=== PATIENT | male | born 1955 | race Caucasian/White ===

== ENCOUNTER → 2020-01-19 | Day surgery (SDC) | payer OTHER ==
[~2020-01-19] MED LIST: Bupivacaine 0.25% 10 ML SDV ONE; Lactated Ringers 1,000 ML IV SCH; Lidocaine 1% 2 ML ONE; Lidocaine 1% 50 ML MDV ONE; Lidocaine 1%/Sod Bicarbonate in NS 8.4% 1 ML Syringe IDERM PRN; Midazolam 1 MG/ML 2 ML SDV ONE; Propofol 200 MG/20 ML SDV ONE; Sodium Chloride 0.9% 10 ML Syringe FLUSH PRN; ceFAZolin 1 GM Vial ONE
--- NOTE | 2020-01-19 10:27 | PCM.PREANE ---
Preanesthetic Assessment - Procedure Proposed Procedure: Rt CTR - Anesthesia/Transfusion/Family Hx Anesthesia History: Prior Anesthesia Without Reaction - Review of Systems General: No Symptoms Pulmonary: No Symptoms Cardiovascular: No Symptoms Gastrointestinal: No Symptoms Neurological: No Symptoms Other: Reports: None - Physical Assessment NPO Status Date: 01/18/20 NPO Status Time: 23:00 Vital Signs: Last Vital Signs Temp 98.2 F 01/19/20 10:00 Pulse 67 01/19/20 10:00 Resp 16 01/19/20 10:00 BP 152/77 H 01/19/20 10:00 Pulse Ox 96 01/19/20 10:00 ASA Class: 1 Mental Status: Alert & Oriented x3 Airway Class: Mallampati = 3 Dentition: Reports: Normal Dentition, [place](s), Missing Tooth/Teeth Thyro-Mental Finger Breadths: 3 Mouth Opening Finger Breadths: 3 ROM/Head Extension: Full Lungs: Clear to Auscultation, Normal Respiratory Effort Cardiovascular: Regular Rate, Regular Rhythm - Lab Values: Laboratory Last Values SARS Virus RNA (PCR) Negative (NEGATIVE) 01/17/20 15:06 - Acknowledgements Anesthesia Type Planned: MAC Pt an Appropriate Candidate for the Planned Anesthesia: Yes Alternatives and Risks of Anesthesia Discussed w Pt/Guardian: Yes Pt/Guardian Understands and Agrees with Anesthesia Plan: Yes PreAnesthesia Questionnaire - HOME MEDS Home Medications: Home Meds Acetaminophen/HYDROcodone [[place] 325-5 MG] 1 - 2 tab PO Q6H PRN #10 tablet 01/18 [Rx] - CURRENT (IN HOUSE) MEDS Current Meds: Current Medications Lactated Ringer's (Ringers, Lactated) 1,000 mls @ 125 mls/hr IV ASDIRECTED TRACI Stop: 01/19/20 23:00 Lidocaine/Sodium Bicarbonate (Buffered Lidocaine 1% In Ns 8.4%) 0.25 ml IDERM ONETIME PRN PRN Reason: Prior to IV Start Stop: 01/19/20 18:00 Sodium Chloride (Saline Flush) 10 ml FLUSH ASDIRECTED PRN PRN Reason: Keep Vein Open Stop: 01/19/20 18:00 Discontinued Medications Bupivacaine HCl (Sensorcaine-Mpf 0.25%) Confirm Administered Dose 20 ml .ROUTE .STK-MED ONE Stop: 01/19/20 10:03 Lidocaine HCl (Xylocaine 1%) Confirm Administered Dose 50 ml .ROUTE .[facility] ONE Stop: 01/19/20 10:03
--- NOTE | 2020-01-19 11:32 | PCM48HPAN ---
Post Anesthesia Note - EVALUATION WITHIN 48HRS OF ANESTHETIC Vital Signs in Normal Range: Yes Patient Participated in Evaluation: Yes Respiratory Function Stable: Yes Airway Patent: Yes Cardiovascular Function Stable: Yes Hydration Status Stable: Yes Pain Control Satisfactory: Yes Nausea and Vomiting Control Satisfactory: Yes Mental Status Recovered: Yes Vital Signs: Last Vital Signs Temp 97.8 F 01/19/20 11:23 Pulse 74 01/19/20 11:23 Resp 16 01/19/20 11:23 BP 126/68 01/19/20 11:23 Pulse Ox 95 01/19/20 11:23
--- NOTE | 2020-01-19 11:40 | PCM.OPNOTE ---
- General Post-Op/Procedure Note Date of Surgery/Procedure: 01/19/20 Operative Procedure(s): right carpal tunnel release Pre Op Diagnosis: right median nerve compression neuropathy Post-Op Diagnosis: Same Anesthesia Technique: Local, MAC Primary Surgeon: Jay Medrano Anesthesia Provider: Shalom Teresa Department Administrator: Hilda Kohli EBL in mLs: 5 Complications: None Condition: Good
--- NOTE | 2020-01-20 18:29 | OR ---
DATE OF OPERATION: 01/19/2020 SURGEON: Jay Medrano MD OPERATION PERFORMED: Right carpal tunnel release. PREOPERATIVE DIAGNOSIS: Right median nerve compression neuropathy. POSTOPERATIVE DIAGNOSIS: Right median nerve compression neuropathy. ANESTHESIA: Local MAC. ANESTHESIA PROVIDER: Nae Patel. JANITORIAL ASSISTANT: Hilda Kohli PA-C ESTIMATED BLOOD LOSS: Less than 5 mL. COMPLICATIONS: None. CONDITION: Stable. DESCRIPTION OF PROCEDURE: The patient was identified in the preop holding area. Proper site was marked and identified by the surgeon. The patient was taken back to the operating theater where after adequate anesthesia, the patient's right upper extremity was sterilely prepped and draped in the usual sterile fashion. OR time-out was performed. The patient did not receive antibiotics and it is not indicated for soft tissue hand procedure. At this time, the right upper extremity was exsanguinated and an [place] was used as a tourniquet on the forearm. At this time, using 1% lidocaine without epinephrine and 0.25% Marcaine without epinephrine, the palmar cutaneous branch of the median nerve was anesthetized and then the incisional site was anesthetized using Huizar cardinal line and ulnar border of the fourth digit as reference. Once this had set up, an incision was made. Blunt dissection was taken down to the palmar cutaneous fascia. Palmar cutaneous fascia was incised with a [place] blade. At this time, the transverse carpal ligament was identified. A small rent was made in the transverse carpal ligament with a [place] blade under direct visualization. Resection of the transverse carpal ligament was done distally using tenotomy scissors making sure to stop short of the palmar arch. At this time, attention was turned proximally after it was found to be adequately released. Using the tenotomy scissors keeping the tips ulnar to protect the palmar cutaneous branch of the median nerve, the superficial forearm fascia as well as the transverse carpal ligament were resected proximally. It was found to be adequate release both proximally and distally. At this time, adequate saline was irrigated through the wound. 4-0 nylon sutures were used closure of the skin. The patient was placed in a sterile soft dressing and sent to PACU in stable condition. MMODAL /[id number]
== END | disposition home or self-care (01) ==
LOC: JD.SDS 09:53
PROVIDERS: ATTEND Orthopaedic Surgery
DX: G56.03 Carpal tunnel syndrome, bilateral upper limbs (principal); I10 Essential (primary) hypertension; E11.42 Type 2 diabetes mellitus with diabetic polyneuropathy; Z11.59 Encounter for screening for other viral diseases; Z79.84 Long term (current) use of oral hypoglycemic drugs; Z79.899 Other long term (current) drug therapy; Z88.8 Allergy status to other drugs, medicaments and biological substances
CPT/HCPCS: 64721; 82962; 87635; J0690; J2001; J2250; J2704; J3490; J7120; 01810; U0002

== ENCOUNTER → 2020-02-06 | Day surgery (SDC) | payer OTHER ==
[~2020-02-06] MED LIST changes: +Ketorolac 30 MG/ML SDV ONE; -Lidocaine 1% 2 ML ONE; +Lidocaine 1% 30 ML SDV ONE; +Lidocaine 1% 4 ML ONE; -Lidocaine 1% 50 ML MDV ONE; +fentaNYL 100 MCG/2 ML SDV ONE
--- NOTE | 2020-02-06 13:31 | PCM.OPNOTE ---
- General Post-Op/Procedure Note Date of Surgery/Procedure: 02/06/20 Operative Procedure(s): left carpal tunnel release Pre Op Diagnosis: left median nerve compression neuropathy Post-Op Diagnosis: Same Anesthesia Technique: Local, MAC Primary Surgeon: Jay Medrano Anesthesia Provider: Viki DE GUZMAN in mLs: 5 Complications: None Condition: Good
--- NOTE | 2020-02-06 13:34 | PCM.PREANE ---
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, left hand CTS) Other: Reports: None, Diabetes (blood sugar @ [id number]), Sinus Problem (seasonal allergies) - Physical Assessment NPO Status Date: 02/05/20 NPO Status Time: 18:00 Vital Signs: HR: 66 Sat: 96% B/P: 169/84 Temp: 97.6 Resp: 16 Height: 1.88 m Weight: 109 kg ASA Class: 2 Mental Status: Alert & Oriented x3 Airway Class: Mallampati = 2 Dentition: Reports: Normal Dentition, [place](s), [place] Thyro-Mental Finger Breadths: 3 Mouth Opening Finger Breadths: 3 ROM/Head Extension: Full Lungs: Clear to Auscultation, Normal Respiratory Effort Cardiovascular: Regular Rate, Regular Rhythm, No Murmurs - Lab Values: Laboratory Last Values POC Glucose 143 mg/dL (80-115) H 02/06/20 13:11 COVID-19 PCR Not detected (NOT DETECT) 02/03/20 15:20 All labs reviewed and noted and within acceptable ranges to proceed with scheduled procedure. - Imaging/EKG Impressions: EKG: SR rate= 77, Left axis deviation, Abnormal R wave progression. - Allergies Allergies/Adverse Reactions: Allergies Allergy/AdvReac Type Severity Reaction Status Date / Time glipizide Allergy Other Verified 01/19/20 10:27 - Anesthesia Plan Pre-Op Medication Ordered: None - Acknowledgements Anesthesia Type Planned: MAC Pt an Appropriate Candidate for the Planned Anesthesia: Yes Alternatives and Risks of Anesthesia Discussed w Pt/Guardian: Yes Pt/Guardian Understands and Agrees with Anesthesia Plan: Yes PreAnesthesia Questionnaire Cardiovascular History: Reports: Hypertension Genitourinary History: Reports: Renal Calculus Endocrine/Metabolic History: Reports: Diabetes, Type II Oncologic (Cancer) History: Reports: Colon - Past Surgical History Other GI Surgeries/Procedures: colon resection Male Surgical History: Reports: Other (See Below) Other Male Surgeries/Procedures: ureteral stent placement Musculoskeletal Surgical History: Reports: Hip Replacement - HOME MEDS Home Medications: Home Meds Acetaminophen/HYDROcodone [[place] 325-5 MG] 1 - 2 tab PO Q6H PRN #10 tablet 01/19/20 [Rx] Dulaglutide [Trulicity] 1.5 mg SUBCUT WEEKLY 01/19/20 [History] Losartan [Cozaar] 100 mg PO DAILY 01/19/20 [History] Pioglitazone HCl/Metformin HCl [Actoplus Met XR 15-1,000 MG] 15 - 500 mg PO BID 01/19/20 [History] atorvaSTATin Calcium [Lipitor] 10 mg PO DAILY 01/19/20 [History] hydroCHLOROthiazide [Hydrochlorothiazide] 25 mg PO DAILY 01/19/20 [History] metFORMIN [Glucophage] 500 mg PO BID 01/19/20 [History] - CURRENT (IN HOUSE) MEDS Current Meds: Current Medications Lactated Ringer's (Ringers, Lactated) 1,000 mls @ 125 mls/hr IV ASDIRECTED TRACI Stop: 02/06/20 23:00 Lidocaine/Sodium Bicarbonate (Buffered Lidocaine 1% In Ns 8.4%) 0.25 ml IDERM ONETIME PRN PRN Reason: Prior to IV Start Stop: 02/06/20 18:00 Sodium Chloride (Saline Flush) 10 ml FLUSH ASDIRECTED PRN PRN Reason: Keep Vein Open Stop: 02/06/20 18:00 Discontinued Medications Bupivacaine HCl (Sensorcaine-Mpf 0.25%) Confirm Administered Dose 10 ml .ROUTE .STK-MED ONE Stop: 02/06/20 13:12 Lidocaine HCl (Xylocaine-Mpf 1%) Confirm Administered Dose 30 ml .ROUTE .STK-MED ONE Stop: 02/06/20 13:12
--- NOTE | 2020-02-06 15:00 | PCM48HPAN ---
Post Anesthesia Note - EVALUATION WITHIN 48HRS OF ANESTHETIC Vital Signs in Normal Range: Yes Patient Participated in Evaluation: Yes Respiratory Function Stable: Yes Airway Patent: Yes Cardiovascular Function Stable: Yes Hydration Status Stable: Yes Pain Control Satisfactory: Yes Nausea and Vomiting Control Satisfactory: Yes Mental Status Recovered: Yes Vital Signs: Last Vital Signs Temp 97.6 F 02/06/20 13:00 Pulse 66 02/06/20 13:00 Resp 16 02/06/20 13:00 BP 160/84 H 02/06/20 13:00 Pulse Ox 96 02/06/20 13:00 1456 1121/72 74 16 97.6 93%
--- NOTE | 2020-02-13 07:29 | OR ---
DATE OF OPERATION: 02/06/2020 SURGEON: Jay Medrano MD OPERATION PERFORMED: Left carpal tunnel release. PREOPERATIVE DIAGNOSIS: Left median nerve compression neuropathy. POSTOPERATIVE DIAGNOSIS: Left median nerve compression neuropathy. ANESTHESIA: Local MAC. ANESTHESIA PROVIDER: Viki Farrell CRNA. CERTIFIED ACTIVITIES DIRECTOR: ESTIMATED BLOOD LOSS: Less than 5 mL. COMPLICATIONS: None. CONDITION: Stable. DESCRIPTION OF PROCEDURE: The patient was identified in the preop holding area. Proper site was marked and identified by the surgeon. The patient was taken back to the operating theater where after adequate anesthesia, the patient's left upper extremity was sterilely prepped and draped in the usual sterile fashion. OR time-out was performed. The patient did not receive antibiotics and it is not indicated for soft tissue hand procedure. At this time, the left upper extremity was exsanguinated and an Esmarch was used as a tourniquet on the forearm. At this time, using 1% lidocaine without epinephrine and 0.25% Marcaine without epinephrine, the palmar cutaneous branch of the median nerve was anesthetized and then the incisional site was anesthetized using Huizar cardinal line and ulnar border of the fourth digit as reference. Once this had set up, an incision was made. Blunt dissection was taken down to the palmar cutaneous fascia. Palmar cutaneous fascia was incised with a [place] blade. At this time, the transverse carpal ligament was identified. A small rent was made in the transverse carpal ligament with a [place] blade under direct visualization. Resection of the transverse carpal ligament was done distally using tenotomy scissors making sure to stop short of the palmar arch. At this time, attention was turned proximally after it was found to be adequately released. Using the tenotomy scissors keeping the tips ulnar to protect the palmar cutaneous branch of the median nerve, the superficial forearm fascia as well as the transverse carpal ligament were resected proximally. It was found to be adequate release both proximally and distally. At this time, adequate saline was irrigated through the wound. 4-0 nylon sutures were used closure of the skin. The patient was placed in a sterile soft dressing and sent to PACU in stable condition. MMODAL /[id number]
== END | disposition home or self-care (01) ==
LOC: JD.SDS 12:50
PROVIDERS: ATTEND Orthopaedic Surgery
DX: G56.03 Carpal tunnel syndrome, bilateral upper limbs (principal); I10 Essential (primary) hypertension; E11.42 Type 2 diabetes mellitus with diabetic polyneuropathy; Z11.59 Encounter for screening for other viral diseases; Z88.8 Allergy status to other drugs, medicaments and biological substances; Z79.899 Other long term (current) drug therapy; Z79.84 Long term (current) use of oral hypoglycemic drugs
CPT/HCPCS: 01810; 82962; J0690; J1885; J2001; J2250; J2704; J3010; J3490; J7120; U0002

== ENCOUNTER 2021-03-19 22:25 | Emergency (ER) | payer MEDICAID, OTHER ==
--- NOTE | 2021-03-19 23:12 | EDM.PDOC ---
ED HPI GENERAL MEDICAL PROBLEM - General Chief Complaint: Back Pain or Injury Stated Complaint: LOWER BACK PAIN Time Seen by Provider: 03/19/21 23:05 - History of Present Illness INITIAL COMMENTS - FREE TEXT/NARRATIVE: 65-year-old male presents the emergency room with low back pain. Patient is getting over a little touch of the flu. He had some nausea but didn't vomit but just felt yucky for a few days. The patient has had his Covid vaccine and the patient did shake this illness after couple of days yesterday morning he woke up feeling pretty good but he had a backache and despite doing normal activities the back pain did not get better during the course of the day today. Patient does work as a diversified crops farmer but did not do anything excessive and he denies any recent injuries. Lower Back Pain Score (Numeric/FACES): 7 - Related Data Allergies Allergy/AdvReac Type Severity Reaction Status Date / Time glipizide Allergy Other Verified 03/19/21 22:39 Home Meds: Home Meds Losartan [Cozaar] 100 mg PO DAILY 01/19/20 [History] atorvaSTATin Calcium [Lipitor] 10 mg PO DAILY 01/19/20 [History] hydroCHLOROthiazide [Hydrochlorothiazide] 25 mg PO DAILY 01/19/20 [History] metFORMIN [Glucophage] 500 mg PO BID 01/19/20 [History] Liraglutide [Victoza 2-Dontrell] 1 injection INJECT DAILY 03/19/21 [History] Past Medical History Cardiovascular History: Reports: Hypertension Genitourinary History: Reports: Renal Calculus Endocrine/Metabolic History: Reports: Diabetes, Type II Oncologic (Cancer) History: Reports: Colon - Past Surgical History Other GI Surgeries/Procedures: colon resection Male Surgical History: Reports: Other (See Below) Other Male Surgeries/Procedures: ureteral stent placement Musculoskeletal Surgical History: Reports: Carpal Tunnel, Hip Replacement Social & Family History - Tobacco Use Tobacco Use Status *Q: Never Tobacco User Second Hand Smoke Exposure: No - Caffeine Use Caffeine Use: Reports: Coffee - Recreational Drug Use Recreational Drug Use: No ED ROS GENERAL - Review of Systems Review Of Systems: See Below HEENT: Reports: No Symptoms Respiratory: Reports: No Symptoms Cardiovascular: Reports: No Symptoms Endocrine: Reports: No Symptoms GI/Abdominal: Reports: No Symptoms : Reports: No Symptoms Musculoskeletal: Reports: No Symptoms, Back Pain Skin: Reports: No Symptoms Neurological: Reports: No Symptoms ED EXAM, GENERAL - Physical Exam Exam: See Below Exam Limited By: No Limitations General Appearance: Alert, No Apparent Distress Head: Atraumatic, Normocephalic Neck: Normal Inspection, Supple, Non-Tender, Full Range of Motion. No: Lymphadenopathy (L), Lymphadenopathy (R) Respiratory/Chest: No Respiratory Distress, Lungs Clear, Normal Breath Sounds Cardiovascular: Normal Peripheral Pulses, Regular Rate, Rhythm, No Edema GI/Abdominal: Normal Bowel Sounds, Soft, Non-Tender Back Exam: Normal Inspection, Vertebral Tenderness (In the L3-4 area), Other (Paraspinous spasm left more so than right). No: CVA Tenderness (L), CVA Tenderness (R) Extremities: Normal Inspection, No Pedal Edema Neurological: Alert, Oriented, Normal Cognition Course - Vital Signs Last Recorded V/S: Last Vital Signs Temp 36.2 C 03/19/21 22:35 Pulse 77 03/19/21 22:35 Resp 16 03/19/21 22:35 BP 165/79 H 03/19/21 22:35 Pulse Ox 95 03/19/21 22:35 - Orders/Labs/Meds Labs: Laboratory Tests 03/19/21 Range/Units 22:47 Urine Color Yellow (Yellow) Urine Appearance Clear (Clear) Urine pH 6.0 (5.0-8.0) Ur Specific [place] 1.015 (1.005-1.030) Urine Protein Negative (Negative) Urine Glucose (UA) Negative (Negative) Urine Ketones Negative (Negative) Urine Occult Blood Negative (Negative) Urine Nitrite Negative (Negative) Urine Bilirubin Negative (Negative) Urine Urobilinogen 0.2 (0.2-1.0) Ur Leukocyte Esterase Negative (Negative) - Re-Assessments/Exams Free Text/Narrative Re-Assessment/Exam: 03/20/21 00:32 Urinalysis is unrevealing x-ray of the lumbar spine is nondiagnostic for acute changes he is got a spondylolisthesis L4 on 5 portions of the prosthetic hip seen on the left side he has significant degenerative changes in L4-L5 L5-S1. Departure - Departure Time of Disposition: 00:33 Disposition: Home, Self-Care 01 Clinical Impression: Low back strain - Discharge Information Referrals: Jaquan Shaw MD [Primary Care Provider] - Additional Instructions: Return to the emergency room with any questions problems or worsening symptoms. Follow-up with your doctor in a week if needed. You have been given Flexeril, this is a muscle relaxant take it as early in the evening as you can as you should give yourself 12 hours after taking this medication before returning to work, driving or operating potentially hazardous equipment. Sepsis Event Note (ED) - Evaluation Sepsis Screening Result: No Definite Risk - Focused Exam Vital Signs: Vital Signs Temp Pulse Resp BP Pulse Ox 03/19/21 22:35 36.2 C 77 16 165/79 H 95
--- NOTE | 2021-03-20 07:16 | CR ---
Lumbar spine: AP, lateral and coned-down lateral view centered to the lumbosacral junction were obtained. Comparison: No prior imaging is available. Spondylolisthesis is noted at L4-5 measuring about 9 mm. L4-5 disc is mildly narrowed. Mild posterior disc space narrowing is seen within L1-L3. Diffuse disc space narrowing is seen at L5-S1. Mild scattered anterior endplate osteophytes are seen. Minimal scoliosis is noted. Surgical clips are seen within the pre-sacral region. Left hip prosthesis is noted. Sacroiliac joint shows minimal degenerative change. Pedicles are intact. Visualized transverse and spinous processes appear intact. Impression: 1. Degenerative change most prominent at L4-5 and L5-S1 as noted above. 2. Mild degenerative change within the sacroiliac joints and other findings as noted above. Diagnostic code #2
== END 2021-03-20 00:46 | disposition home or self-care (01) ==
LOC: JD.ED 22:25
DX: S39.012A Strain of muscle, fascia and tendon of lower back, initial encounter (principal); E11.9 Type 2 diabetes mellitus without complications; I10 Essential (primary) hypertension; Z79.899 Other long term (current) drug therapy; Z88.8 Allergy status to other drugs, medicaments and biological substances; Z79.84 Long term (current) use of oral hypoglycemic drugs; X58.XXXA Exposure to other specified factors, initial encounter
CPT/HCPCS: 72100; 72100-26; 81003; 99283; 99283-25